=== PATIENT | female | born 1980 | race Caucasian/White ===

== ENCOUNTER 2017-05-24 10:16 | Emergency (ER) | END 2017-05-24 11:13 | disposition home or self-care (01) ==

== ENCOUNTER 2019-01-03 18:16 | Emergency (ER) | payer MEDICAID ==
[~2019-01-03] VITALS: Ht 152.4 cm; Wt 55.0 kg
[~2019-01-03 18:16] MED LIST: ACET325T33 PO; ACYC800T5 PO; BEN50 PO; CIPR500T4 PO; D-ME473S2 PO; FLUT9.9S NASAL; METR500T PO; PHEN177S43 MT
[2019-01-03 18:20] VITALS: BP 123/60; PULSE 95; RESP 17; Ht 152.4 cm; Wt 55.0 kg
--- NOTE | 2019-01-03 18:48 | ERD ---
ER Documentation Chief Complaint Chief Complaint RASH ALL OVER X3 DAYS, ITCHING HPI 38-year-old female, with history of Crohn's disease, presents to the emergency department, complaining of generalized vesicular pustular lesions that started 3 days ago after being in contact with a family member diagnosed with chickenpox. The patient reports mild headache, subjective fever and general malaise. She has been taking acetaminophen with mild improvement of the symptoms. She denies cough, no shortness of breath, no chills. The patient does not remember having chickenpox during infancy. ROS All systems reviewed and are negative except as per history of present illness. Medications Home Meds Active Scripts Acetaminophen* (Tylenol*) 325 Mg Tablet, 2 TAB PO Q6 PRN for PAIN AND OR ELEVATED TEMP, #20 TAB Prov:KATHERINE RICE MD 01/03/19 Diphenhydramine Hcl* (Benadryl*) 50 Mg Cap, 50 MG PO QHS PRN for ITCHING/RASH, #10 CAP Prov:KATHERINE RICE MD 01/03/19 Acyclovir* (Zovirax*) 800 Mg Tablet, 800 MG PO 5 TIMES DAILY for 7 Days, TAB Prov:KATHERINE RICE MD 01/03/19 Phenol* (Chloraseptic* [place]) 177 Ml [place].pump, 2 SPRAY MT Q2H PRN for SORE THROAT, #1 BOTTLE Prov:LALO BATES PA-C 05/24/17 Dextromethorphan Hb-Promethazine Hcl* (Promethazine DM* Syrup) 473 Ml Syrup, 5 ML PO Q6 PRN for COUGH, #120 ML Prov:LALO BATES PA-C 05/24/17 Fluticasone Propionate (Flonase Allergy Relief) 9.9 Ml [place].susp, 1 SPRAY NASAL BID, #1 BOTTLE TO EACH NOSTRIL Prov:LALO BATES PA-C 05/24/17 Metronidazole* (Flagyl*) 500 Mg Tablet, 500 MG PO TID for 7 Days, TAB Prov:JESSICA THAPA PA-C 01/25/16 Ciprofloxacin Hcl* (Ciprofloxacin Hcl*) 500 Mg Tablet, 500 MG PO BID for 7 Days, TAB Prov:JESSICA THAPA PA-C 01/25/16 Allergies Allergies: Uncoded Allergies: NONE (Allergy, 06/09/13) PMhx/Soc History of Surgery: No Anesthesia Reaction: No Hx Neurological Disorder: No Hx Respiratory Disorders: No Hx Cardiac Disorders: No Hx Psychiatric Problems: No Hx Miscellaneous Medical Probl: Yes (Crohn's disease) Hx Alcohol Use: No Hx Substance Use: No Hx Tobacco Use: No FmHx Family History: No diabetes, No coronary disease Physical Exam Vitals Vital Signs Date Temp Pulse Resp B/P (MAP) Pulse Ox O2 O2 Flow FiO2 Time Delivery Rate 01/03/19 100.0 95 17 123/60 98 18:20 (81) Physical Exam Const: No acute distress Head: Atraumatic Eyes: Normal Conjunctiva ENT: Normal External Ears, Nose and Mouth. Neck: Full range of motion. No meningismus. Resp: Clear to auscultation bilaterally Cardio: Regular rate and rhythm, no murmurs Abd: Soft, non tender, non distended. Normal bowel sounds Skin: Multiple disseminated vesicular and pustular lesions in different stages of healing including face, mucosal and a scalp Back: No midline or flank tenderness Ext: No cyanosis, or edema Neur: Awake and alert Psych: Normal Mood and Affect Procedures/MDM Differential diagnosis include but not limited to: Contact dermatitis, HSV infection, cellulitis, insect bite, scabies. impetigo. Physical examination and clinical presentation consistent most likely with chickenpox, patient hemodynamically stable, with mild symptoms, I doubt varicella complications like pneumonia, therefore, I considered that at this time, antiviral IV medication is not indicated. During the ED course the patient remained stable, no new complaints. Results and clinical impression discussed with patient who agrees with man agement. The patient is stable to be treated outpatient and will be discharged home with a Rx for acyclovir, some side effects of prescribed medications (headache, rash, nausea, vomiting, diarrhea, drowsiness, habituation, bleeding, hypertension, interactions with other medications) were reviewed. The patient was instructed to follow up with the primary care provider in the next 48h. If symptoms persist, worsen or new symptoms develop, then patient should return to the ED immediately. Instructions explained and given directly by me to the patient with acknowledgment and demonstrated understanding. Disclaimer: Inadvertent spelling and grammatical errors are likely due to EHR/dictation software use and do not reflect on the overall quality of patient care. Also, please note that the electronic time recorded on this note does not necessarily reflect the actual time of the patient encounter. Departure Diagnosis: Primary Impression: Chickenpox Additional Impression: History of Crohn's disease Condition: Stable Additional Instructions: Muchas elise por [facility] para [facility] servicio. Esperamos que en [place] visita a la eloisa de emergencia [place] problema medico haya sido solucionado y que se sienta mucho mejor. Para estar seguros que [place] mejoria sigue en proceso, le pedimos el favor de hacer bert maddy de seguimiento medico con [place] doctor primario en los proximos 2-4 chauhan. Lleve con usted estos documentos y las medicinas recetadas. Si nanci sintomas empeoran, NO SE ESPERE, por favor regrese a eloisa de emergencia INMEDIATAMENTE. En amy que usted no tenga un mdico de atencin primaria: Llame al mdico o clnica comunitaria de referencia que aparece abajo dionisio las horas de consultorio para hacer bert maddy para que le vean. CLINICAS: [facility] [phone] [facility] [phone] [facility] [phone] [facility] [phone] [place] [id number] [phone] [facility] [phone] KATHERINE Dee MD Jan 03, 2019 18:48
== END 2019-01-03 18:58 | disposition home or self-care (01) ==
LOC: E/R 18:16
DX: B01.9 Varicella without complication (principal); Z87.19 Personal history of other diseases of the digestive system
CPT/HCPCS: 99283